=== PATIENT | male | born 1960 | race Caucasian/White ===

== ENCOUNTER 2019-05-14 17:43 | Observation (INO) ==
[2019-05-14] MEDS ORDERED: ZOFRAN IV PRN (17:45)
[2019-05-14] MEDS ORDERED: DILAUDID IV PRN (17:49)
[2019-05-14] MEDS ORDERED: NS + KCL 20 MEQ 1,000 ML IV SCH (18:00)
[2019-05-14] MEDS ORDERED: SODIUM CHLORIDE 0.9% INJ SCH (18:00)
[2019-05-14] MEDS ORDERED: PROTONIX IV SCH (18:00)
--- NOTE | 2019-05-14 19:08 | Diag Imaging Result Doc PS360 ---
CT HEAD W/O CONTRAST - 05/14/2019 INDICATION: severe lizarraga/dizziness COMPARISON: None FINDINGS: The ventricles and sulci are normal in size and contour. No intracranial mass or hemorrhage. The skull is intact. The sinuses mastoids and middle ears are clear. IMPRESSION: Negative exam. This exam was performed using automated exposure control, adjustment of mA or kV according to patient size, and/or use of iterative reconstruction technique Electronically signed by Chandan Sheikh 05/14/2019 7:06 PM
[2019-05-14] MEDS: TYLENOL PO PRN (19:42)
[2019-05-14] MEDS ORDERED: MILK OF MAGNESIA PO ONE (21:00)
[2019-05-14] MEDS ORDERED: DESYREL PO SCH (21:00)
--- NOTE | 2019-05-14 21:55 | HISTORY AND PHYSICAL ---
CHIEF COMPLAINT: Headache, dizziness, nausea. HISTORY OF PRESENT ILLNESS: The patient is a 58-year-old white male followed my medical practice, who presents to the office. He is extremely pale appearing, diaphoretic, cool and clammy. He complains of a headache that started about 4 days ago and has been unrelenting. It has been in the front of his head and in the occipital area as well. He has had some nausea, no vomiting, no definite fever. He has had some dizziness and "spotty vision." It feels like his face has been burning at times. He also complains of some anterior upper chest and upper abdomen reflux like symptoms and burning sensation. MEDICATIONS: Prior to admission are Ingraham 5 mg 1 p.o. daily to t.i.d., Lyrica 150 mg p.o. q.i.d., Protonix 40 mg p.o. daily, Zoloft 50 mg p.o. daily, trazodone 100 mg p.o. at bedtime, aspirin 325 mg p.o. daily, Wellbutrin XL 150 mg p.o. daily, Toprol-XL 25 mg p.o. daily, Hyzaar 100/25 one p.o. daily. ALLERGIES: NKDA. PAST MEDICAL HISTORY: 1. Remote peptic ulcer disease. 2. Hypertension diagnosed October 1996. 3. Chronic right TM perforation. 4. Chronic back pain on chronic narcotics per [facility]. 5. Depression. 6. Chronic insomnia. PAST SURGICAL HISTORY: 1. Bilateral eye surgery secondary to strabismus in 1974. 2. Lumbar laminectomy in September 2018. FAMILY HISTORY: Notable for lung cancer in his brother who was a smoker. Hypertension in his mother, father and 3 brothers. Diabetes mellitus in his father. NC in his brother at age 49. No strokes in the family. Aunt with stomach cancer. SOCIAL HISTORY: Patient lives in [place]. He is . He has no children. He is on disability due to chronic back pain. He has never been a smoker. Remote history of heavy alcohol use. Rare alcohol now by patient report. REVIEW OF SYSTEMS: Negative except as above and also notable for a patient with normal Lexiscan nuclear stress test done 09/12/2018. PHYSICAL EXAMINATION: VITAL SIGNS: Blood pressure 152/80, pulse 70, temperature 96.9 degrees. GENERAL: Moderately obese white male, pale, cool and clammy. HEENT: Chronic dysconjugate gaze with left esotropia noted. Right TM with chronic changes, moderate to severe. Left TM clear. OP mild redness. No exudate. NECK: No LA. No meningeal signs. No TMG or bruits. No JVD. CV: RRR. No murmur. LUNGS: CTA. BACK: No CVA tenderness. ABDOMEN: Soft, protuberant, possibly some palpable stool. No pinpoint tenderness. GENITOURINARY/RECTAL: Deferred. EXTREMITIES: No calf tenderness cords or edema. NEUROLOGIC: Cranial nerves 2-12 are intact. Alert orient x3. Slow with speech but answers questions appropriately. Alert and oriented x3. Moves all extremities well. Follows commands. EKG: Shows normal sinus rhythm with no acute ST changes. LAB DATA: Was obtained showing satisfactory CBC, normal troponin, CMP, amylase, lipase unremarkable. Flat and upright of the chest reveals constipation, otherwise negative. ASSESSMENT: 1. Severe headache. 2. Dizziness. 3. Abdominal pain/chest pain. 4. Hypertension. 5. Chronic back pain on chronic narcotic medication. 6. Chronic constipation, thought related to narcotics. PLAN: With the patient's cool and clammy appearance and paleness, we will admit the patient for 23-hour observation. Check CT head without contrast. Give him Dilaudid as needed for headache, pain and Phenergan as needed for nausea or vomiting. We will give him IV hydration. Keep him on clear liquids. Give him milk of magnesia for constipation. Check serial cardiac enzymes and troponin levels. Follow the patient clinically. cc: Gustavo Pierre MD
[2019-05-15] MEDS: TYLENOL PO PRN (06:13)
[2019-05-15] MEDS ORDERED: HYZAAR 50/12.5 MG PO SCH (09:00)
[2019-05-15] MEDS ORDERED: ZOLOFT PO SCH (09:00)
[2019-05-15] MEDS ORDERED: WELLBUTRIN XL PO SCH (09:00)
[2019-05-15] MEDS ORDERED: TOPROL XL PO SCH (09:00)
[2019-05-15] MEDS ORDERED: NORCO-5 PO SCH (09:00)
[2019-05-15] MEDS ORDERED: MIRALAX PO SCH (09:00)
[2019-05-15] MEDS ORDERED: FLU VACCINE IM ONE (12:12)
--- NOTE | 2019-05-15 12:24 | PROGRESS NOTE ---
DATE: 05/15/2019 SUBJECTIVE: Patient overall feeling better. Still has mild headache, less dizziness. He is ambulating without difficulty. No abdominal pain or chest pain. No nausea. Had a large bowel movement this morning after milk of magnesia last evening. OBJECTIVE: Vital Signs: Afebrile, vital signs stable. Cardiovascular: RRR. No murmur. Lungs: CTA. Neurologic: Cranial nerves 2-12 are intact. Abdomen: Soft, NT, ND. No mass. No HSM. Extremities: No edema. IMAGING: CT scan of the head negative. LABORATORY DATA: Reviewed from the outpatient workup done yesterday to include normal CBC, normal CMP, amylase and lipase normal. Cardiac enzymes, troponin level negative x3. Plasma lactate on admission was slightly elevated at 2.8. Blood cultures x2 are negative so far. Urine culture with no growth. ASSESSMENT: 1. Headache, improved. 2. Dizziness, improved. 3. Abdominal pain/chest pain, thought related primarily to constipation. 4. Chronic constipation, thought related to narcotic use from the pain clinic. 5. Chronic back pain. 6. Hypertension. PLAN: We will monitor him this afternoon after eating his lunch and ambulate him, and if he does well we will discharge him home on his home medications with the addition of MiraLAX daily. He will talk with this pain specialist about escalating the dose of his narcotic pain medicine briefly to allow for improvement of the headache. Expect that to resolve in the next 2 or 3 days. He will follow up with me in 1 to 2 weeks as needed. cc: Gustavo Pierre MD
[2019-05-15 12:59] VITALS: BP 111/71
== END 2019-05-15 16:13 | disposition home or self-care (01) ==
LOC: DIRADM → 1N 17:43
PROVIDERS: ADMIT Family Medicine; ATTEND Family Medicine